=== PATIENT | male | born 1930 | race Caucasian/White ===

== ENCOUNTER → 2016-09-26 | Outpatient (CLI) | payer OTHER | LOC: SBRMNEURO 22:00 | PROVIDERS: ATTEND Physician Assistant Medical | DX: G47.33 Obstructive sleep apnea (adult) (pediatric) (principal); G47.61 Periodic limb movement disorder ==

== ENCOUNTER → 2016-12-07 | Outpatient (CLI) | payer OTHER | LOC: BMCIMAGING 09:53 | PROVIDERS: ATTEND Family Medicine | DX: M17.0 Bilateral primary osteoarthritis of knee (principal); M11.261 Other chondrocalcinosis, right knee; M11.262 Other chondrocalcinosis, left knee ==

== ENCOUNTER → 2016-12-13 | Outpatient (CLI) | payer OTHER | LOC: BHFA 13:15 | PROVIDERS: ATTEND Internal Medicine Cardiovascular Disease | DX: R00.1 Bradycardia, unspecified (principal); R55 Syncope and collapse ==

== ENCOUNTER 2016-12-17 10:30 | Observation (INO) | payer OTHER ==
[2016-12-17] MEDS ORDERED: diphenhydrAMINE 25 MG CAP PO ONE (10:34)
[2016-12-17] MEDS ORDERED: DIAZEPAM 5 MG TAB PO ONE (10:34)
[2016-12-17] MEDS ORDERED: ceFAZolin 2 GM/DEXTROSE 100 ML IV ONE (10:34)
[2016-12-17] MEDS ORDERED: NS 1,000 ML IV ONE (10:34)
[2016-12-17] MEDS ORDERED: BACITRACIN IRRIGATION/NS 50,000 UNITS/1,000 ML BTL IRR ONE (10:34)
--- NOTE | 2016-12-17 11:04 | CPEKG ---
Heart Rate: 42 RR Interval: 1429 P-R Interval: 268 QRSD Interval: 98 QT Interval: 452 QTC Interval: 378 P Lizella: 0 QRS Lizella: 24 T Wave Lizella: 4 EKG Severity - ABNORMAL ECG - EKG Impression: SINUS BRADYCARDIA EKG Impression: FIRST DEGREE AV BLOCK EKG Impression: BORDERLINE R WAVE PROGRESSION, ANTERIOR LEADS Electronically Signed By: Meghan Zamorano 17-Dec-2016 17:18:46
[2016-12-17 11:19] LABS: % IMMATURE GRANULYOCYTES 0.5 % (0.0-1.1); ABSOLUTE IMMATURE GRANULOCYTES 0.04 10^3/uL (0.00-0.10); ADD DIFF? NO; ADD MORPH? NO; ADD SCAN? NO; ATYPICAL LYMPHOCYTE FLAG 10 (0-99); FRAGMENT RBC FLAG 0 (0-99); HEMOGLOBIN 15.1 g/dL (13.7-17.5); LEFT SHIFT FLG 0 (0-99); LIPEMIA HEMOLYSIS FLAG 90 (0-99); MEAN CELL HEMOGLOBIN 33.9 pg (27.9-34.1); MEAN CELL HEMOGLOBIN CONCENTR. 35.1 g/dL (32.4-36.7); MEAN CELL VOLUME 96.6 fL (81.5-99.8); MEAN PLATELET VOLUME 9.9 fL (8.7-11.7); PLATELET CLUMPS FLAG 0 (0-99); PLATELET COUNT 157 10^3/uL (150-400); RED BLOOD CELL COUNT 4.45 10^6/uL (4.40-6.38); RED CELL DISTRIBUTION WIDTH 12.7 % (11.5-15.2)
[2016-12-17 11:30] LABS: INR 1.1 (0.83-1.16); PROTIME(PATIENT) 14.1 SEC (12.0-15.0)
[2016-12-17] MEDS ORDERED: VANCOMYCIN HCL/NORMAL SALINE 250 ML IV ONE (11:30)
[2016-12-17 11:38] LABS: ANION GAP 7 mEq/L (8-16); CALCIUM 9.8 mg/dL (8.5-10.4); CARBON DIOXIDE 27 mEq/l (22-31); CHLORIDE 107 mEq/L (97-110); CREATININE 0.9 mg/dL (0.7-1.3); GLOMERULAR FILTRATION RATE > 60; GLUCOSE 114 mg/dL (70-100); POTASSIUM 4.5 mEq/L (3.5-5.2); SODIUM 141 mEq/L (134-144)
[2016-12-17] MEDS ORDERED: LIDOCAINE 1% 30 ML SDV ONE (13:05)
[2016-12-17] MEDS ORDERED: MIDAZOLAM 2 MG/2 ML VIAL ONE (13:05)
[2016-12-17] MEDS ORDERED: fentaNYL 100 MCG/2 ML INJ ONE (13:05)
[2016-12-17] MEDS ORDERED: BUPIVACAINE 0.5% 30 ML SDV ONE (13:05)
[2016-12-17] MEDS ORDERED: IOPAMIDOL (ISOVUE-300) 100 ML BTL ONE (13:44)
[2016-12-17] MEDS ORDERED: HYDROCODONE/APAP 5/325 TAB PO PRN (15:33)
--- NOTE | 2016-12-17 15:42 | EPPROC ---
Electrophysiology Procedure Note: PROCEDURE PERFORMED: 1. Implantation of an A/V Pacemaker 2. Subclavian vein angiography 3. Fluoroscopy INDICATION: Sinus bradycardia Fatigue PROCEDURE NOTE: Patient presented to the cardiac catheterization laboratory in a fasting, post absorptive state . EP clinical case manager administered sedation. The right infraclavicular area was prepped and draped in the usual sterile fashion. Lidocaine plus bupivacaine was used for local anesthesia. Right subclavian venography was performed by injection of iodinated contrast into the right antecubital vein. This was done to assure patency of the vein and also to assess for any anatomical aberrations. Using a combination of blunt and sharp dissection and electrocautery, the dissection was carried down to the prepectoral fascia. A pocket was made in this anatomical plane. All bleeding was controlled with electrocautery. The pocket was packed with gauze soaked in antibiotic solution. Fluoroscopy was utilized during the entire procedure for venous access and placement of the leads. Using a direct stick technique the right extrathoracic axillary vein was accessed with 2 sticks using the modified Seldinger technique. Placement of the guidewires into the venous system was confirmed by low-pressure blood return and also by visualizing the guidewires advancing into the inferior vena cava. A purse string suture was applied around the guidewires. Two #7 Maltese sheaths were advanced under fluoroscopic guidance over the guidewires. An active fixation ventricular lead was advanced into the right ventricular apex and screwed in place. An active fixation atrial lead was advanced into the right atrial appendage and screwed in place. The peel away sheaths were removed. Pacing thresholds, sensing parameters and lead impedances were measured. There was no diaphragmatic stimulation at maximum output. The leads were sutured to the prepectoral fascia with 3 nonabsorbable sutures each. The pocket was again inspected for any bleeding. The leads were attached to the pacemaker securely. The pacemaker was inserted into the pocket and secured in place with a nonabsorbable suture. Fluoroscopy was performed in CABRERA and DANISH planes to verify right-sided placement of the leads. Also fluoroscopy of the pacemaker pocket was performed. The pacemaker pocket was closed in 3 layers with absorbable monocryl sutures and ely. Appropriate dressing was applied. The patient left the cardiac catheterization laboratory in stable condition. Serial Numbers: 1. Device: Biotronik Eluna ProMRI SN [id number] 2. Atrial Lead: BiotronikSolia S45 SN [id number] 3. Ventricular Lead: Biotronik Solia S53 SN [id number] Stimulation Thresholds & Impedance Measurements: 1. Atrial Lead P 2.5 mV 0.8 V 0.4 ms 448 ohm 2. Ventricular Lead R 6.1 mV 0.6 V 0.4 ms 702 ohm Low Pacing Parameters 1. Pacing mode: DDD-CLS 2. Lower rate: 60 ppm 3. Upper tracking rate: 110 ppm 4. Upper sensor rate: 110 ppm Patient Problems: Problems Problem Status Onset Bradycardia Acute
--- NOTE | 2016-12-17 16:05 | CPEKG ---
Heart Rate: 60 RR Interval: 1000 P-R Interval: 180 QRSD Interval: 90 QT Interval: 424 QTC Interval: 424 QRS Sumter: 15 T Wave Sumter: 22 EKG Severity - ABNORMAL ECG - EKG Impression: ATRIAL-PACED RHYTHM Electronically Signed By: Marc Abrams 17-Dec-2016 16:30:17
[2016-12-17] MEDS: CARBIDOPA/LEVODOPA 10MG/100MG 1 TAB PO SCH (17:41)
[2016-12-17 18:26] VITALS: PULSE 60
[2016-12-17] MEDS ORDERED: ASPIRIN 81 MG CHEWABLE TAB PO SCH (21:00)
[2016-12-18 04:05] LABS: % IMMATURE GRANULYOCYTES 0.3 % (0.0-1.1); ABSOLUTE IMMATURE GRANULOCYTES 0.02 10^3/uL (0.00-0.10); ADD DIFF? NO; ADD MORPH? NO; ADD SCAN? NO; ATYPICAL LYMPHOCYTE FLAG 10 (0-99); FRAGMENT RBC FLAG 0 (0-99); HEMATOCRIT 41.6 % (40.0-51.0); HEMOGLOBIN 14.8 g/dL (13.7-17.5); LEFT SHIFT FLG 0 (0-99); LIPEMIA HEMOLYSIS FLAG 90 (0-99); MEAN CELL HEMOGLOBIN 34.2 pg (27.9-34.1); MEAN CELL HEMOGLOBIN CONCENTR. 35.6 g/dL (32.4-36.7); MEAN CELL VOLUME 96.1 fL (81.5-99.8); MEAN PLATELET VOLUME 9.8 fL (8.7-11.7); PLATELET CLUMPS FLAG 0 (0-99); PLATELET COUNT 139 10^3/uL (150-400); RED BLOOD CELL COUNT 4.33 10^6/uL (4.40-6.38); RED CELL DISTRIBUTION WIDTH 12.6 % (11.5-15.2)
[2016-12-18 04:29] LABS: ANION GAP 7 mEq/L (8-16); CALCIUM 9.3 mg/dL (8.5-10.4); CARBON DIOXIDE 26 mEq/l (22-31); CHLORIDE 109 mEq/L (97-110); CREATININE 0.9 mg/dL (0.7-1.3); GLOMERULAR FILTRATION RATE > 60; GLUCOSE 99 mg/dL (70-100); POTASSIUM 4.1 mEq/L (3.5-5.2); SODIUM 142 mEq/L (134-144)
[2016-12-18] MEDS: CARBIDOPA/LEVODOPA 10MG/100MG 1 TAB PO SCH ×2 (05:39→12:04)
[2016-12-18 08:36] VITALS: BP 140/71; RESP 14; TEMP 98; O2SAT 91
[2016-12-18] MEDS ORDERED: MULTIVITAMINS 1 EACH TAB PO SCH (09:00)
--- NOTE | 2016-12-18 09:01 | CPEKG ---
Heart Rate: 60 RR Interval: 1000 P-R Interval: 160 QRSD Interval: 84 QT Interval: 416 QTC Interval: 416 QRS Yantis: 20 T Wave Yantis: 24 EKG Severity - ABNORMAL ECG - EKG Impression: ATRIAL-PACED RHYTHM EKG Impression: ABNRM R PROG, CONSIDER ASMI OR LEAD PLACEMENT Electronically Signed By: Meghan Zamorano 18-Dec-2016 17:06:47
--- NOTE | 2016-12-18 12:05 | PDIAF ---
- Diagnosis Code Status: Full Code - Medication Management Discharge Medications: Medications to Continue on Transfer Acetaminophen [Tylenol 325mg (*)] 650 mg PO TID PRN 12/17/16 [Last Taken 18:00] Aspirin [Aspirin 81mg (*)] 81 mg PO HS 12/17/16 [Last Taken Unknown] Carbidopa/Levodopa 10/100Mg [Sinemet 10/100 MG (*)] 1 tab PO TID@06,12,18 [Last Taken 12/16/16 18:00] Multivitamins [Multivitamin (*)] 1 each PO DAILY 12/17/16 [Last Taken Unknown] Discharge Medications: Refer to the Discharge Home Medication list for PRN reason. - Orders Services needed: Home Care, Registered Nurse, Physical Therapy Home Care Face to Face: I certify that this patient was under my care and that I had the required [id number] encounter meeting the encounter requirements on the discharge day. My findings support the fact that the patient is homebound as defined in CMS Chapter 7 Medicare Benefits Manual 30.1.1, The condition of the patient is such that there exists a normal inability to leave home and consequently, leaving home would require a considerable and taxing effort. Diet Recommendation: no restrictions on diet - Follow Up Care Current Providers and Referrals: Cade Shaver MD [Medical Doctor] - (*Follow up for device and wound check on December 27 at 3 PM at [facility] Dr Shaver Office *Follow up with Dr Shaver on December 27 at 3:30 PM at [facility] ) Marc Abrams MD [Medical Doctor] - ( Follow up with Dr Abrams on January 17 at 10: 30 am) James Kumari MD [Primary Care Provider] -
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
== END 2016-12-18 12:40 | disposition home or self-care (01) ==
LOC: FCATH 10:30 → F2W 15:14
PROVIDERS: ADMIT Internal Medicine Cardiovascular Disease; ATTEND Internal Medicine Cardiovascular Disease
PROC: 0JH606Z Insertion of Pacemaker, Dual Chamber into Chest Subcutaneous Tissue and Fascia, Open Approach (ICD-10-PCS; principal; 2016-12-17)
DX: R00.1 Bradycardia, unspecified (principal); I45.5 Other specified heart block; G20 Parkinson's disease; Z88.0 Allergy status to penicillin
CPT/HCPCS: 33208; 71010; 71020; 93005; 97162; C1785; C1898; G8978; G8979; G8980; J2250; J3010; J3370; Q9967; J0690

== ENCOUNTER → 2017-02-07 | Outpatient (CLI) | payer OTHER | LOC: FIMAGING 13:58 | PROVIDERS: ATTEND Orthopaedic Surgery | DX: Z01.818 Encounter for other preprocedural examination (principal); M12.862 Other specific arthropathies, not elsewhere classified, left knee ==

== ENCOUNTER 2017-02-18 08:56 | Inpatient (IN) | payer OTHER ==
--- NOTE | 2017-02-18 06:32 | PDHPUP ---
History & Physical Update H&P update statement: This history and physical update is based on an assessment of the patient which was completed after admission or registration (within 24 hours), but prior to the surgery/procedure.
[~2017-02-18 08:56] MED LIST: ROPI/epiNEPH/KETOROLAC/morphINE JOINT COCKTAIL IU ONE
[2017-02-18] MEDS ORDERED: FAMOTIDINE 20 MG TAB PO ONE (09:27)
[2017-02-18] MEDS ORDERED: ACETAMINOPHEN 325 MG TAB PO ONE (09:27)
[2017-02-18] MEDS ORDERED: LR 1,000 ML IV ONE (09:44)
--- NOTE | 2017-02-18 11:46 | PDANEPAE ---
ANE History of Present Illness l knee osteoarthritis ANE Past Medical History - Cardiovascular History Hx Hypertension: No Hx Arrhythmias: Yes Hx Chest Pain: No Hx Coronary Artery / Peripheral Vascular Disease: No Hx CHF / Valvular Disease: No Hx Palpitations: No Cardiovascular History Comment: SYMPTOMATIC BRADYCARDIA. PACER PLACED 12/17/16 WITH ALIZA. HAND PICKER IS DR GOMES AT [facility] [place]. HYPERLIPIDEMIA - Pulmonary History Hx COPD: No Hx Asthma/Reactive Airway Disease: No Hx Recent Upper Respiratory Infection: No Hx Oxygen in Use at Home: No Hx Sleep Apnea: Yes Sleep Apnea Screening Result - Last Documented: Positive Pulmonary History Comment: ALESSANDRA POSITIVE USES CPAP- INSTRUCTED PT TO BRING DOS - Neurologic History Hx Cerebrovascular Accident: No Hx Seizures: No Hx Dementia: No Neurologic History Comment: PARKINSONS. PERIPHERAL NEUROPATHY. RESTLESS LEG SYNDROME. SPINAL STENOSIS - Endocrine History Hx Diabetes: Yes Endocrine History Comment: TYPE 2. HYPOTHYROIDISM. 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 WEARS GLASSES. UNSTEADY GAIT - Chronic Pain History Chronic Pain: No - Surgical History Prior Surgeries: pacemaker placed 12/17/16 with Aliza. partial removal of right side thyroid nodule- non cancerous. tonsillectomy ANE Review of Systems - Exercise capacity METS (RN): 3 METS - Pacemaker Pacemaker Type: Permanent Pacer/Defib Pacemaker Creative Services Director: Biotronik Pacemaker Model: Eluna 8 DR-T Pacemaker Mode: DDD-CLS Pacemaker Set Rate: 60 Date Pacemaker Last Checked: 01/30/17 ANE Patient History - Allergies Allergies/Adverse Reactions: Penicillins Allergy (Verified 12/17/16 11:33) Hives - Home Medications Home Medications: Multivitamins [Multivitamin (*)] 1 each PO DAILY 12/17/16 [Last Taken Unknown] Acetaminophen 325 mg PO DAILY PRN 02/12/17 [Last Taken Unknown] Atorvastatin Calcium [Lipitor 10 mg (*)] 10 mg PO DAILY 02/12/17 [Last Taken Unknown] Carbidopa/Levo Cr 50/200Mg [SINEMET CR 50/200 MG (*)] 1 tab PO TID 02/12/17 [ Last Taken Unknown] Levothyroxine [Synthroid 137 mcg (*)] 137 mcg PO DAILY06 02/12/17 [Last Taken Unknown] Vitamin B Complex [Super B-50 Complex] 1 each PO DAILY 02/12/17 [Last Taken Unknown] - NPO status NPO Since - Liquids (Date): 02/17/17 NPO Since - Solids (Date): 02/17/17 - Smoking Hx Smoking Status: Former smoker - Family Anes Hx Family Hx Anesthesia Complications: NONE ANE Labs/Vital Signs - Vital Signs Blood Pressure: 155/86 Heart Rate: 73 Respiratory Rate: 20 O2 Sat (%): 95 Height: 178 cm Weight: 65.8 kg ANE Physical Exam - Airway Neck exam: FROM Mallampati Score: Class 2 Mouth exam: normal dental/mouth exam - Pulmonary Pulmonary: no respiratory distress - Cardiovascular Cardiovascular: regular rate and rhythym - ASA Status ASA Status: III ANE Anesthesia Plan Anesthesia Plan: MAC, spinal Regional Anesthesia: adductor canal FNB
[2017-02-18] MEDS ORDERED: TRANEXAMIC ACID 650 MG in NS 100 ML IV ONE ×2 (12:00→12:17)
[2017-02-18] MEDS ORDERED: PROPOFOL/EMULSION 500 MG/50 ML BOTTLE IV ONE (12:11)
[2017-02-18] MEDS ORDERED: VANCOMYCIN PHARMACY TO DOSE MISC ONE (12:17)
[2017-02-18] MEDS ORDERED: THROMBIN (BOVINE) 5,000 UNIT VIAL TP ONE (12:32)
[2017-02-18] MEDS ORDERED: CALCIUM CHLORIDE 1 GM/10 ML INJ ONE (12:33)
[2017-02-18] MEDS ORDERED: fentaNYL 100 MCG/2 ML INJ ONE (12:47)
[2017-02-18] MEDS ORDERED: LIDOCAINE 1% 5 ML, BUPIVACAINE 0.5% 5 ML, morphINE PF 5 MG in SYRINGE 0 ML IU ONE (13:00)
[2017-02-18] MEDS ORDERED: VANCOMYCIN HCL/NORMAL SALINE 250 ML IV ONE ×2 (13:00→22:00)
[2017-02-18] MEDS ORDERED: NALOXONE HCL 0.4 MG/ML INJ IVP PRN (13:26)
[2017-02-18] MEDS ORDERED: ONDANSETRON 4 MG/2 ML VIAL IVP PRN ×2 (13:26→14:38)
[2017-02-18] MEDS ORDERED: fentaNYL 100 MCG/2 ML INJ IVP PRN (13:26)
[2017-02-18] MEDS ORDERED: HYDROmorphONE/DILAUDID 1 MG/ML SYR IVP PRN (13:26)
[2017-02-18] MEDS ORDERED: PROPOFOL 200 MG/20 ML VIAL ONE (13:44)
[2017-02-18] MEDS ORDERED: ONDANSETRON 4 MG/2 ML VIAL ONE (14:26)
[2017-02-18] MEDS ORDERED: ROPIVACAINE HCL 150 MG/30 ML INJ ONE (14:26)
[2017-02-18] MEDS ORDERED: POLYETHYLENE GLYCOL 3350 17 GM PKT PO PRN (14:38)
[2017-02-18] MEDS ORDERED: oxyCODONE IR 5 MG TAB PO PRN (14:38)
[2017-02-18] MEDS ORDERED: TEMAZEPAM 15 MG CAP PO PRN (14:38)
[2017-02-18] MEDS ORDERED: diphenhydrAMINE 25 MG CAP PO PRN (14:38)
[2017-02-18] MEDS ORDERED: LACTULOSE 20 GM/30 ML UDCUP PO PRN (14:38)
[2017-02-18] MEDS ORDERED: PHARMACY PAIN CONSULT 1 EA MISC PRN (14:38)
[2017-02-18] MEDS ORDERED: DIPHENOXYLATE/ATROPINE LOMOTIL 1 TAB PO PRN (14:38)
[2017-02-18] MEDS ORDERED: BISACODYL 10 MG SUPP PR PRN (14:38)
[2017-02-18] MEDS ORDERED: PROMETHAZINE HCL 25 MG SUPPR PR PRN (14:38)
[2017-02-18] MEDS ORDERED: traMADol 50 MG TAB PO PRN (14:38)
[2017-02-18] MEDS ORDERED: ONDANSETRON DISINTEGRATING 4 MG TAB PO PRN (14:38)
[2017-02-18] MEDS ORDERED: CYCLOBENZAPRINE 10 MG TAB PO PRN (14:38)
[2017-02-18] MEDS ORDERED: MAGNESIUM HYDROXIDE 30 ML UDCUP PO PRN (14:38)
[2017-02-18] MEDS ORDERED: PROMETHAZINE HCL 25 MG/ML INJ IVP PRN (14:38)
[2017-02-18] MEDS ORDERED: METOCLOPRAMIDE 10 MG/2 ML VIAL IVP PRN (14:38)
[2017-02-18] MEDS ORDERED: LR 1,000 ML IV SCH (15:00)
--- NOTE | 2017-02-18 15:10 | POSTANESTH ---
Post Anesthetic Evaluation Cardiovascular Status: Normal, Stable Respiratory Status: Normal, Stable Level of Consciousness/Mental Status: Can Participate in Eval Pain Control: Adequate, Prn Tx Ordered Nausea/Vomiting Control: Adequate, Prn Tx Ordered Complications Possibly Related to Anesthesia: None Noted
[2017-02-18 16:41] VITALS: RESP 16
[2017-02-18] MEDS: ACETAMINOPHEN 325 MG TAB PO SCH ×2 (17:00→23:57)
[2017-02-18] MEDS: CARBIDOPA/LEVO CR 50 MG/200 MG TAB PO SCH ×2 (17:00→21:10)
[2017-02-18] MEDS: SENNOSIDES/DOCUSATE SODIUM TAB PO SCH (20:57)
[2017-02-18] MEDS: FAMOTIDINE 20 MG TAB PO SCH (20:58)
[2017-02-18] MEDS: ASPIRIN 325 MG TAB PO SCH (21:10)
--- NOTE | 2017-02-19 05:16 | GCON ---
[f rep st] CONSULTATION DATE OF CONSULTATION: 02/18/2017 The patient is a pleasant 86-year-old gentleman with a history of Parkinson's and pacemaker who is p ostoperative day 0 from a left total knee arthroplasty secondary to osteoarthritis. When I speak with the patient who in the PACU, he is just being straight cathed for urinary retentio n, the patient does not have a history of urinary retention or BPH and in speaking with the ICU nurs e, it sounds like it was fairly easy for the placement. It sounds like at baseline he is proficient in his ADLs and has predominant symptoms from his [place] son's or a tremor, but it sounds like he does have some weakness and knee pain that limits his level of ambulation. He currently says his pain is completely well controlled. He cannot feel his leg at all to get a ne rve block. He has no other complaints. REVIEW OF SYSTEMS: Complete 10-point review of systems is conducted, negative as noted in the HPI. PAST MEDICAL HISTORY: 1. Parkinson's for which he takes t.i.d. Sinemet. 2. Pacemaker placement in December of this year for bradycardia. 3. Osteoarthritis. 4. Hyperlipidemia. 5. Hypothyroidism. ALLERGIES: Penicillins. HOME MEDICATIONS: Multivitamins, levothyroxine, vitamin B complex, carbidopa levodopa, atorvastatin . SOCIAL HISTORY: He lives in [place], retired. 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 No tobacco, no alcohol . FAMILY HISTORY: Parents . PHYSICAL EXAM: VITAL SIGNS: Temp 36.5, pulse 73, blood pressure 155/86, pulse 73, breathing 20 time s a minute, 95% on room air. GENERAL: No acute distress. Sclerae anicteric. Oropharynx clear. M ucous membranes moist. NECK: Supple without lymphadenopathy or JVD. LUNGS: Clear to auscultation bilaterally. His pacer site is clean, dry and intact without fluctuance or erythema. HEART: S1, S2, without murmurs. ABDOMEN: Soft, nontender, nondistended. LOWER EXTREMITIES: Without edema. There is an ice pack on his left knee. NEUROLOGIC: Notable for a tremor, most notable in his left hand. SKIN: Without rash. LABORATORY DATA: White count 6.4, hematocrit 34, platelets are 184,000. Recent coags show an INR o f 1.1. Sodium 143, potassium 4.4, chloride 108, bicarb 22, BUN 21, creatinine 0.8, glucose 117. Kn ee x-ray obtained today shows anatomic alignment of left knee arthroplasty. I discussed the case wit katiuska Unger. ASSESSMENT: This is an 86-year-old gentleman with Parkinson's and pacemaker, postop day 0, status p ost arthroplasty. 1. Status post arthroplasty. He is wearing off nerve block. His pain is well controlled. 2. Parkinson's. I have resumed his Sinemet at his scheduled dose. This is important in this patie nt with Parkinson's who often have their catheters run into trouble with worsening symptoms because of their Parkinson's medications are not administered on the same basis as at home. 3. Hyperlipidemia. Continue with statin. 4. Benadryl therapy, caution given his age, will leave it for now. 5. Prophylaxis. Patient is high risk. Recommend VT prophylaxis with enoxaparin. He is currently n ot written for that or other agents. 6. Pacemaker, sinus bradycardia. Would follow. This is not an indication for telemetry. 7. Disposition, inpatient status. Thank you for this consultation. Hospital Medicine will follow with you. /[id number]/MODL
[2017-02-19 05:18] LABS: HEMOGLOBIN 11.7 g/dL (13.7-17.5)
[2017-02-19] MEDS: ACETAMINOPHEN 325 MG TAB PO SCH ×3 (06:00→11:47)
[2017-02-19] MEDS ORDERED: LEVOTHYROXINE 137 MCG TAB PO SCH (06:00)
--- NOTE | 2017-02-19 07:22 | PDIAF ---
- Diagnosis Diagnosis: left knee djd Code Status: Full Code - Medication Management Discharge Medications: Medications to Continue on Transfer Multivitamins [Multivitamin (*)] 1 each PO DAILY 12/17/16 [Last Taken Unknown] Acetaminophen 325 mg PO DAILY PRN 02/12/17 [Last Taken Unknown] Atorvastatin Calcium [Lipitor 10 mg (*)] 10 mg PO DAILY 02/12/17 [Last Taken Unknown] Carbidopa/Levo Cr 50/200Mg [SINEMET CR 50/200 MG (*)] 1 tab PO TID 02/12/17 [ Last Taken Unknown] Levothyroxine [Synthroid 137 mcg (*)] 137 mcg PO DAILY06 02/12/17 [Last Taken Unknown] Vitamin B Complex [Super B-50 Complex] 1 each PO DAILY 02/12/17 [Last Taken Unknown] Aspirin [Aspirin 325 mg (*)] 325 mg PO DAILY #0 tab 02/19/17 [Last Taken Unknown ] oxyCODONE IR [Oxycodone Ir (*)] 5 - 10 mg PO Q3HRS PRN #70 tab 02/19/17 [Last Taken Unknown] traMADol [Ultram 50 mg (*)] 50 mg PO Q6HRS PRN #70 tab 02/19/17 [Last Taken Unknown] Discharge Medications: Refer to the Discharge Home Medication list for PRN reason. - Orders Services needed: Physical Therapy Diet Recommendation: no restrictions on diet Diet Texture: Regular Texture Diet Activity/Weight Bearing Restrictions: wbat. rom as tolerated. daily dressing changes. may shower without bandage, no soaking or immersion. aspirin 325 mg po daily. f/u at two weeks. seek attn for increasing pain, cp, sob, other focal complaints - Follow Up Care Current Providers and Referrals: James Kumari MD [Primary Care Provider] -
[2017-02-19 07:44] VITALS: BP 146/72; TEMP 97.8
[2017-02-19] MEDS: ASPIRIN 325 MG TAB PO SCH (08:59)
[2017-02-19] MEDS: CARBIDOPA/LEVO CR 50 MG/200 MG TAB PO SCH ×2 (08:59→15:56)
[2017-02-19] MEDS: FAMOTIDINE 20 MG TAB PO SCH (09:00)
[2017-02-19] MEDS ORDERED: ATORVASTATIN CALCIUM 10 MG TAB PO SCH (09:00)
[2017-02-19] MEDS: SENNOSIDES/DOCUSATE SODIUM TAB PO SCH (09:00)
[2017-02-19 12:17] VITALS: PULSE 65; O2SAT 94
--- NOTE | 2017-02-19 16:57 | GDS ---
[f rep st] DISCHARGE SUMMARY ADMITTING DIAGNOSES: Left knee degenerative joint disease. DISCHARGE DIAGNOSIS: Left knee degenerative joint disease. PROCEDURE: Left total knee arthroplasty. OPERATIVE INDICATIONS: This patient is an 86-year-old gentleman with end-stage arthritis to his lef t knee. Clinical and radiographic features are consistent with this. He has failed all attempts at conservative management, and therefore recommended total knee replacement. He understood the risks , benefits, alternatives, and wished to proceed. Written consent was signed and [facility]. HOSPITAL COURSE: The patient was admitted overnight after uncomplicated total knee arthroplasty-OSVALDO Oplasty. He tolerated the procedure well. At the time of discharge, he is tolerating an oral diet. His pain is well controlled on oral medici carlos. His dressing is clean, dry, and intact. He has no calf swelling or tenderness. Negative Corinne ns bilaterally. X-rays demonstrate anatomic alignment. DISCHARGE ACTIVITIES: Weightbearing as tolerated. Range of motion as tolerated. Daily dressing ch anges. May shower without the bandage. No soaking or immersion. KVNG jorge x2 weeks. Follow up at 2 weeks for repeat evaluation. Seek attention for increasing redness, swelling, drainage, discharge , or other focal complaint. DISCHARGE MEDICATIONS: Oxycodone 5 mg 1-2 every 6 hours p.r.n. pain, tramadol 50 mg 1-2 every 6 constanza rs p.r.n. pain. /[id number]/MODL
== END 2017-02-19 16:26 | disposition home health service (06) | DRG 470 ==
LOC: F3N 08:56
PROVIDERS: ADMIT Orthopaedic Surgery; ATTEND Orthopaedic Surgery
PROC: 8E0Y0CZ Robotic Assisted Procedure of Lower Extremity, Open Approach (ICD-10-PCS; principal; 2017-02-18 11:30)
PROC: 0SRD0J9 Replacement of Left Knee Joint with Synthetic Substitute, Cemented, Open Approach (ICD-10-PCS; principal; 2017-02-18 11:30)
DX: M17.12 Unilateral primary osteoarthritis, left knee (principal); R33.9 Retention of urine, unspecified; G20 Parkinson's disease; Z95.0 Presence of cardiac pacemaker; E78.5 Hyperlipidemia, unspecified; E03.9 Hypothyroidism, unspecified; G47.33 Obstructive sleep apnea (adult) (pediatric); G60.9 Hereditary and idiopathic neuropathy, unspecified; G25.81 Restless legs syndrome; M48.00 Spinal stenosis, site unspecified
CPT/HCPCS: 97116-GP; 97161-GP; 97165-GO; C1713; G8978-GP-CI; G8979-GP-CI; G8980-GP-CI; G8987-GO-CI; G8988-GO-CI; G8989-GO-CI; J0171; J1885; J2274; J2405; J2704; J2795; J3010; J3370

== ENCOUNTER → 2017-05-01 | Outpatient (CLI) | payer OTHER | LOC: BMCIMAGING 09:57 | PROVIDERS: ATTEND Orthopaedic Surgery | DX: Z47.1 Aftercare following joint replacement surgery (principal); M79.89 Other specified soft tissue disorders; Z96.652 Presence of left artificial knee joint ==

== ENCOUNTER → 2017-07-02 | Outpatient (CLI) | payer OTHER | LOC: FIMAGING 11:22 | PROVIDERS: ATTEND Psychiatry & Neurology Neurology | DX: R41.3 Other amnesia (principal); J32.3 Chronic sphenoidal sinusitis ==